=== PATIENT | female | born 1990 | race Hispanic/Latino ===

== ENCOUNTER 2017-09-22 21:12 | Observation (INO) | payer BC, OTHER ==
[~2017-09-22] VITALS: Ht 180.3 cm; Wt 64.9 kg
[~2017-09-22 21:12] MED LIST: FERR-82 PO; FOLI-114 PO; IBUP-2077 PO; IRON18TA PO; MULT-48 PO
[2017-09-22 22:13] LABS: BASOPHILS % (AUTO) 0.4 % (0.0-5.0); HEMATOCRIT 38.7 % (36-48); LYMPHOCYTES % (AUTO) 25.1 % (21.0-51.0); MEAN CORPUSCULAR HEMOGLOBIN 28.6 pg (27.0-33.0); MEAN CORPUSCULAR HGB CONC 34.4 g/dL (32.0-36.0); MEAN CORPUSCULAR VOLUME 83.1 fL (79-99); MONOCYTES % (AUTO) 9.2 % (3.0-13.0); NEUTROPHILS % (AUTO) 64.3 % (40.0-77.0); PLATELET COUNT (AUTO) 271 K/uL (130-400); RED BLOOD CELL COUNT(AUTO) 4.65 MIL/uL (4.00-5.50); RED CELL DISTRIBUTION WIDTH 12.4 % (11.0-15.5); WHITE BLOOD COUNT (AUTO) 9.2 K/uL (4.8-10.8)
[2017-09-23] VITALS (9 sets, daily range): BP systolic 94–115; BP diastolic 47–73
[2017-09-23 00:44] LABS: HEMATOCRIT 36.8 % (36-48)
[2017-09-23] MEDS ORDERED: LACTATED RINGERS 1000ML 1,000 ML IV ONE (02:30)
[2017-09-23] MEDS ORDERED: LACTATED RINGERS 1000ML 1,000 ML IV SCH (10:15)
[2017-09-23] MEDS ORDERED: PROMETHAZINE HCL 25 MG/ML 1ML AMPULE IM PRN ×2 (10:15→14:30)
[2017-09-23] MEDS ORDERED: FENTANYL CITRATE PF 50 MCG/1 ML 2ML VIAL ONE (12:18)
[2017-09-23] MEDS ORDERED: LIDOCAINE PF 2% 5ML ABBOJECT ONE (12:18)
[2017-09-23] MEDS ORDERED: MIDAZOLAM HCL 1 MG/ML 2ML VIAL ONE (12:18)
[2017-09-23] MEDS ORDERED: PROPOFOL 10 MG/ML 20ML VIAL IV ONE (12:18)
[2017-09-23] MEDS ORDERED: OXYTOCIN 10 USP UNITS/ML ONE (12:41)
[2017-09-23] MEDS ORDERED: MORPHINE SULFATE 2 MG/ML 1ML SYG ONE (13:03)
[2017-09-23] MEDS ORDERED: ONDANSETRON HCL 4 MG/2 ML VIAL IVP PRN ×2 (14:30→14:45)
[2017-09-23] MEDS ORDERED: DiphenhydrAMINE HCL 50 MG/ML VIAL IVP PRN (14:30)
[2017-09-23] MEDS ORDERED: MORPHINE SULFATE 2 MG/ML 1ML SYG IVP PRN (14:30)
[2017-09-23] MEDS ORDERED: NALOXONE HCL 0.4 MG/1 ML ML IVP PRN ×2 (14:30)
[2017-09-23] MEDS ORDERED: ONDANSETRON HCL 4 MG/2 ML 8 MG in SODIUM CHLORIDE 0.9% 50 ML IVP NR (14:30)
[2017-09-23] MEDS ORDERED: EPHEDRINE SULFATE 50 MG/ML AMPULE IVP PRN (14:30)
[2017-09-23] MEDS ORDERED: HYDROCODONE/ACETAMINOPHEN 5/325 MG TAB PO PRN ×2 (14:30)
[2017-09-23] MEDS ORDERED: METOCLOPRAMIDE 10 MG/2 ML VIAL IVP PRN (14:30)
== END 2017-09-23 18:05 | disposition home or self-care (01) ==
LOC: EDH 21:12 → INTOOBSV 09-23 01:15 → EDHIP 09-23 01:15 → WSH 09-23 07:20
PROVIDERS: ADMIT Obstetrics & Gynecology; ATTEND Obstetrics & Gynecology
DX: O03.4 Incomplete spontaneous abortion without complication (principal); Z82.49 Family history of ischemic heart disease and other diseases of the circulatory system; Z83.3 Family history of diabetes mellitus; Z3A.01 Less than 8 weeks gestation of pregnancy
CPT/HCPCS: 36415 ×2; 58120; 76817; 84702 ×2; 85014; 85018; 85025; 86900; 86901; 88305; 99285; A4351; G0378 ×17; J2001; J2250; J2590; J2704; J3010; J7120 ×3

== ENCOUNTER 2019-06-27 21:56 | Observation (INO) | payer MEDICAID, OTHER ==
[~2019-06-27] VITALS: Ht 149.9 cm; Wt 62.1 kg
[2019-06-27 22:26] LABS: BASOPHILS % (AUTO) 0.1 % (0.0-5.0); EOSINOPHILS % (AUTO) 0.3 % (0.0-8.0); HEMATOCRIT 40.2 % (36-48); LYMPHOCYTES % (AUTO) 16.4 % (21.0-51.0); MEAN CORPUSCULAR HEMOGLOBIN 27.4 pg (27.0-33.0); MEAN CORPUSCULAR HGB CONC 33.6 g/dL (32.0-36.0); MEAN CORPUSCULAR VOLUME 81.7 fL (79-99); NEUTROPHILS % (AUTO) 72.8 % (40.0-77.0); PLATELET COUNT (AUTO) 251 K/uL (130-400); RED BLOOD CELL COUNT(AUTO) 4.92 MIL/uL (4.00-5.50); RED CELL DISTRIBUTION WIDTH 12.3 % (11.0-15.5); WHITE BLOOD COUNT (AUTO) 10.5 K/uL (4.8-10.8)
[2019-06-27 22:39] LABS: CREATININE 0.6 mg/dL (0.5-1.5); POTASSIUM 3.6 mmol/L (3.5-5.1)
[2019-06-27] MEDS ORDERED: SODIUM CHLORIDE 0.9% 1000ML 1,000 ML IV ONE (22:46)
[2019-06-27 23:10] LABS: ALBUMIN 3.9 g/dL (3.5-5.0); BILIRUBIN,TOTAL 0.4 mg/dL (0.2-1.0); TOTAL PROTEIN, SERUM 8.2 g/dL (6.0-8.3)
[2019-06-27] MEDS ORDERED: ACETAMINOPHEN 325 MG TAB ONE (23:36)
[2019-06-28 00:01] LABS: APPEARANCE,URINE TURBID (CLEAR); BILIRUBIN,URINE NEGATIVE (NEGATIVE); COLOR,URINE RED (YELLOW); GLUCOSE, URINE (UA) NEGATIVE (NEGATIVE); KETONES,URINE 40 mg/dL (NEGATIVE); LEUKOCYTE ESTERASE ,URINE NEGATIVE (NEGATIVE); NITRATE,URINE POSITIVE (NEGATIVE); OCCULT BLOOD,URINE LARGE (NEGATIVE); PROTEIN,URINE >=300 mg/dL (NEGATIVE); UROBILINOGEN,URINE 0.2 mg/dL (0.2-1.0)
[2019-06-28 00:14] LABS: BACTERIA,URINE Few /HPF (None Seen); RBC,URINE TNTC /HPF (0-1)
[2019-06-28] MEDS ORDERED: ONDANSETRON HCL 4 MG/2 ML VIAL ONE ×2 (00:38→03:13)
[2019-06-28] MEDS ORDERED: MORPHINE SULFATE 4 MG/1ML SYG ONE (00:38)
[2019-06-28 01:20] VITALS: BP 137/76
[2019-06-28] MEDS ORDERED: MEPERIDINE-PF 25 MG/ML SYG IVP PRN (01:45)
[2019-06-28] MEDS ORDERED: LACTATED RINGERS 1000ML 1,000 ML IV SCH (01:45)
[2019-06-28] MEDS ORDERED: PROMETHAZINE HCL 25 MG/ML 1ML AMPULE IM PRN (01:45)
[2019-06-28] MEDS ORDERED: MEPERIDINE-PF 25 MG/ML SYG ONE (01:58)
--- NOTE | 2019-06-28 02:50 | NUR ---
PROVIDER CALLED DR. Daniel HUITRON CALLED TO CHECK ON PATIENT STATUS AND GET AN UPDATE ON PATIENT BLEEDING. PROVIDER WAS NOTIFIED THAT PATIENT AMBULATED TO AND HAS A CLOT THAT HAS NOT PASSED BUT IS IN VAGINAL CANAL. PROVIDER SAID TO PREPARE PATIENT FOR D&C RIGHT NOW RATHER THAN WAITING TILL LATER IN THE MORNING ORIGINALLY PLANNED.
[2019-06-28] MEDS ORDERED: LIDOCAINE PF 2% 5ML ABBOJECT ONE (03:13)
[2019-06-28] MEDS ORDERED: DEXAMETHASONE SOD PHOSPHATE 10MG/ML 1ML VIAL ONE (03:13)
[2019-06-28] MEDS ORDERED: SUCCINYLCHOLINE 200MG/10ML SYR ONE (03:13)
[2019-06-28] MEDS ORDERED: GLYCOPYRROLATE 1 MG/5 ML SYRINGE ONE (03:13)
[2019-06-28] MEDS ORDERED: NEOSTIGMINE 5MG/5ML SYR IV ONE (03:13)
[2019-06-28] MEDS ORDERED: PROPOFOL 10 MG/ML 20ML VIAL IV ONE ×2 (03:14→03:55)
[2019-06-28] MEDS ORDERED: FENTANYL CITRATE PF 50 MCG/1 ML 2ML VIAL ONE (03:14)
[2019-06-28] MEDS ORDERED: ROCURONIUM 10MG/1ML SYR 10 MG/ML ML ONE (03:14)
[2019-06-28 03:15] VITALS: BP 116/53
[2019-06-28] MEDS ORDERED: MIDAZOLAM HCL 1 MG/ML 2ML VIAL ONE (03:15)
[2019-06-28 03:30] VITALS: BP 116/53
--- NOTE | 2019-06-28 03:43 | NUR ---
PATIENT TRANSFER PATIENT TAKEN BACK TO OR BY L&D STAFF HERBER MENDOZA AND MAYITO MONTE.
[2019-06-28] MEDS ORDERED: OXYTOCIN 10 USP UNITS/ML ONE (03:55)
[2019-06-28] MEDS ORDERED: OXYTOCIN-LR 20 UNITS/1000 ML 1,000 ML IV ONE (04:47)
--- NOTE | 2019-06-28 06:05 | NUR ---
PATIENT RECEIVED ON UNIT PATIENT RECEIVED FROM L&D. PATIENT STABLE AND TOLERATED WELL. PATIENT STATES NO PAIN. PATIENT TAKEN TO BR AND VOIDED 500ML.
[2019-06-28 06:17] VITALS: BP 107/70
[2019-06-28 07:21] LABS: HEMATOCRIT 30.9 % (36-48); MEAN CORPUSCULAR HEMOGLOBIN 27.9 pg (27.0-33.0); MEAN CORPUSCULAR HGB CONC 33.7 g/dL (32.0-36.0); MEAN CORPUSCULAR VOLUME 82.8 fL (79-99); PLATELET COUNT (AUTO) 183 K/uL (130-400); RED BLOOD CELL COUNT(AUTO) 3.73 MIL/uL (4.00-5.50); RED CELL DISTRIBUTION WIDTH 12.2 % (11.0-15.5); WHITE BLOOD COUNT (AUTO) 7.4 K/uL (4.8-10.8)
[2019-06-28 07:37] VITALS: BP 98/60
--- NOTE | 2019-06-28 10:50 | NUR ---
DISCHARGE PT LEFT UNIT VIA WHEELCHAIR, ACCOMPANIED BY SIGNIFICANT OTHER. DENIED PAIN AND HAD NO COMPLAINTS. TRANSPORTED BY PERSONAL VEHICLE.
== END 2019-06-28 10:50 | disposition home or self-care (01) ==
LOC: EDH 21:56 → EDHIP 21:57 → WSH 06-28 01:02
PROVIDERS: ADMIT Obstetrics & Gynecology; ATTEND Obstetrics & Gynecology
DX: O03.4 Incomplete spontaneous abortion without complication (principal); Z88.1 Allergy status to other antibiotic agents; Z3A.10 10 weeks gestation of pregnancy
CPT/HCPCS: 36415 ×2; 59812; 76801; 80053; 81001; 84702; 85025; 85027; 86900; 86901; 88305; 99284; A4351; G0378 ×10; J0330; J1100; J2001; J2175; J2250; J2270; J2405 ×2; J2590 ×2; J2704 ×2; J2710; J3010; J3490; J7030 ×2